=== PATIENT | male | born 1995 | race Two or more races ===

== ENCOUNTER 2025-02-10 01:33 | Inpatient (IN) | payer OTHER ==
[~2025-02-10] VITALS: Ht 182.9 cm; Wt 98.1 kg
[2025-02-10 02:45] LABS: PLATELET COUNT (AUTO) 388 K/uL (150-450); RED BLOOD CELL COUNT(AUTO) 5.20 MIL/uL (4.50-5.90); RED CELL DISTRIBUTION WIDTH 13.1 % (11.5-14.5); WHITE BLOOD COUNT (AUTO) 13.0 K/uL (4.5-11.0)
[2025-02-10 02:54] LABS: CALCIUM, TOTAL 8.9 mg/dL (8.8-10.5); CREATININE 0.82 mg/dL (0.60-1.30); GLOMERULAR FILTR. RATE CALC > 60 mL/min (>60); GLUCOSE,RANDOM 101 mg/dL (70-110); SODIUM SERUM 141 mmol/L (136-145); UREA NITROGEN, BLOOD 14 mg/dL (7-18)
[2025-02-10 02:55] LABS: ALCOHOL, URINE DRUG SCREEN POSITIVE (NEGATIVE); AMPHET/METH SCREEN,URINE NEGATIVE (NEGATIVE); BARBITURATE SCREEN, URINE NEGATIVE (NEGATIVE); CANNABINOID SCREEN,URINE NEGATIVE (NEGATIVE); COCAINE SCREEN,URINE NEGATIVE (NEGATIVE); METHADONE SCREEN, URINE NEGATIVE (NEGATIVE)
[2025-02-10 02:56] LABS: APPEARANCE,URINE CLEAR (CLEAR); GLUCOSE, URINE (UA) NEGATIVE (NEGATIVE); LEUKOCYTE ESTERASE ,URINE NEGATIVE (NEGATIVE); NITRATE,URINE NEGATIVE (NEGATIVE); OCCULT BLOOD,URINE NEGATIVE (NEGATIVE); PH,URINE DRUG SCREEN 5.5 (5.0-8.0); SPECIFIC GRAVITIY, URINE 1.012 (1.003-1.030)
[2025-02-10] MEDS: POTASSIUM CHLORIDE 20 MEQ ER TABLET PO ONE (03:56)
[2025-02-10] MEDS: IBUPROFEN 600 MG TABLET PO ONE (03:57)
[2025-02-10 07:32] LABS: COVID AG,FIA SOURCE NASAL SWAB
[2025-02-10 08:15] LABS: SARS-COV2 (COVID) ANTIGEN,FIA Negative (Negative)
[2025-02-10] MEDS ORDERED: ZOLPIDEM TARTRATE 10 MG TABLET PO PRN (13:30)
[2025-02-10 20:58] VITALS: BP 133/88; PULSE 88; RESP 18; TEMP 98; O2SAT 99
[2025-02-11 08:09] VITALS: BP 133/82; PULSE 67; RESP 17; TEMP 97.7; O2SAT 98
[2025-02-11] MEDS ORDERED: IBUPROFEN 400 MG TABLET PO PRN (12:00)
[2025-02-11] MEDS ORDERED: MAGNESIUM HYDROXIDE SUSPENSION 30 ML UDCUP PO PRN (12:00)
[2025-02-11] MEDS ORDERED: NICOTINE 14 MG/24 HOUR PATCH TD PRN (12:00)
[2025-02-11] MEDS ORDERED: GuaiFENesin/D-METHORPHAN [SUGAR-FREE] 200-20MG/10 ML SYRUP UDCUP PO PRN (12:00)
[2025-02-11] MEDS ORDERED: ALBUTEROL SULFATE HFA 90 MCG/PUFF 8 GM INHALER IH PRN (12:00)
[2025-02-11] MEDS ORDERED: LOPERAMIDE HCL 2 MG CAPSULE PO PRN (12:00)
[2025-02-11] MEDS ORDERED: MAG HYDROX/ALUMINUM HYD/SIMETH ES 30 ML SUSPENSION UDCUP PO PRN (12:00)
[2025-02-11] MEDS ORDERED: ACETAMINOPHEN 325 MG TABLET PO PRN (12:00)
[2025-02-11] MEDS ORDERED: DOCUSATE SODIUM 100 MG CAPSULE PO PRN (12:00)
[2025-02-11] MEDS ORDERED: ONDANSETRON 4 MG TABLET PO PRN (12:00)
[2025-02-11] MEDS ORDERED: PETROLATUM,WHITE 28 GM JELLY TP PRN (12:00)
== END 2025-02-11 16:24 | disposition home or self-care (01) | DRG 885 ==
LOC: EMS 01:33 → B3A 17:44
PROVIDERS: ADMIT Psychiatry & Neurology Child & Adolescent Psychiatry; ATTEND Psychiatry & Neurology Child & Adolescent Psychiatry
PROC: GZ58ZZZ Individual Psychotherapy, Cognitive-Behavioral (ICD-10-PCS; principal; 2025-02-11)
PROC: GZ56ZZZ Individual Psychotherapy, Supportive (ICD-10-PCS; 2025-02-11)
DX: F33.1 Major depressive disorder, recurrent, moderate (principal); R45.851 Suicidal ideations; F10.929 Alcohol use, unspecified with intoxication, unspecified; F43.10 Post-traumatic stress disorder, unspecified; Y90.6 Blood alcohol level of 120-199 mg/100 ml; S00.83XA Contusion of other part of head, initial encounter; X58.XXXA Exposure to other specified factors, initial encounter; Z20.822 Contact with and (suspected) exposure to COVID-19; Y93.89 Activity, other specified; Y92.89 Other specified places as the place of occurrence of the external cause; Y99.8 Other external cause status
CPT/HCPCS: 70450; 70486; 80048; 80307; 81003; 84132; 85025; 99285; G0480